=== PATIENT | male | born 1995 | race Caucasian/White ===

== ENCOUNTER 2018-09-24 08:54 | Emergency (ER) | payer BC ==
[2018-09-24] MEDS ORDERED: Sodium Chloride 0.9% 1,000 ML IV ONE (09:10)
[2018-09-24 09:55] LABS: ANION GAP 13.5 mmol/L (5-15); CHLORIDE,CL 96 mmol/L (98-115); SODIUM,NA 133 mmol/L (136-145)
[2018-09-24] MEDS ORDERED: Acetaminophen 500 MG Tab PO ONE (10:05)
--- NOTE | 2018-09-24 10:30 | EDM.PDOC ---
ED HPI GENERAL MEDICAL PROBLEM - General Chief Complaint: General Stated Complaint: SOB,LIGHT-HEADED,PASSED OUT Time Seen by Provider: 09/24/18 09:15 Source of Information: Reports: Patient - History of Present Illness INITIAL COMMENTS - FREE TEXT/NARRATIVE: 23-year-old male presented to the [facility] today with complaints of fever and not feeling well over the last 3 days. He was given a be seen and had a syncopal episode and then was therefore transferred over to the ER for further evaluation. IV was started and 1 L normal saline was initiated. Patient reports that he's been running fevers of 102 over the last 3 days. He has not felt well. He denies significant sore throat but his friend has states that he has had some cough. He denies any ear pain, no nausea or vomiting, no diarrhea. He reports no dysuria. He's not had any abdominal pain. He is been experiencing some associated headaches. He is otherwise very healthy and is not taking medications and has not had any significant past medical history. Onset: Gradual Onset Date: 09/21/18 Duration: Day(s):, Constant Location: Reports: Head, Neck Quality: Reports: Ache Severity: Moderate Improves with: Reports: Medication Worsens with: Reports: None Associated Symptoms: Reports: Cough, Fever/Chills, Headaches, Syncope. Denies: Confusion, Chest Pain, Nausea/Vomiting Treatments CHILD PSYCHOLOGIST: Reports: Acetaminophen headache Pain Score (Numeric/FACES): 8 - Related Data Allergies Allergy/AdvReac Type Severity Reaction Status Date / Time ibuprofen Allergy Hives Verified 09/24/18 09:23 Home Meds: Home Meds . [No Known Home Meds] 11/19/14 [History] Past Medical History - Past Health History Medical/Surgical History: Denies Medical/Surgical History Musculoskeletal History: Reports: Other (See Below) Other Musculoskeletal History: several fx. of the spine - Past Surgical History HEENT Surgical History: Reports: Oral Surgery Social & Family History - Family History Family Medical History: Noncontributory - Tobacco Use Smoking Status *Q: Never Smoker Second Hand Smoke Exposure: No - Caffeine Use Caffeine Use: Reports: None - Recreational Drug Use Recreational Drug Use: No ED ROS GENERAL - Review of Systems Review Of Systems: See Below Constitutional: Reports: Fever, Weakness HEENT: Reports: Throat Pain. Denies: Ear Discharge, Ear Pain, Rhinitis, Sinus Problem, Throat Swelling, Vision Change Respiratory: Reports: Shortness of Breath Cardiovascular: Denies: Chest Pain, Blood Pressure Problem Endocrine: Reports: No Symptoms GI/Abdominal: Reports: Difficulty Swallowing. Denies: Abdominal Pain, Anorexia , Black Stool, Bloody Stool, Diarrhea, Vomiting : Reports: No Symptoms Musculoskeletal: Reports: No Symptoms Skin: Reports: No Symptoms Neurological: Reports: Headache Psychiatric: Reports: No Symptoms Hematologic/Lymphatic: Reports: No Symptoms Immunologic: Reports: No Symptoms ED EXAM, GENERAL - Physical Exam Exam: See Below Exam Limited By: No Limitations General Appearance: Alert, WD/WN, No Apparent Distress Eye Exam: Bilateral Eye: EOMI, PERRL Ears: Normal External Exam, Normal Canal, Hearing Grossly Normal, Normal TMs Nose: Normal Inspection, Normal Mucosa, No Blood Throat/Mouth: Normal Inspection, Normal Lips, Normal Teeth, Normal Gums, Normal Voice, No Airway Compromise, Inflammation Head: Atraumatic, Normocephalic Neck: Normal Inspection, Supple, Non-Tender, Full Range of Motion. No: Lymphadenopathy (L), Lymphadenopathy (R) Respiratory/Chest: No Respiratory Distress, Lungs Clear, Normal Breath Sounds, No Accessory Muscle Use Cardiovascular: Regular Rate, Rhythm GI/Abdominal: Normal Bowel Sounds, Soft, Non-Tender, No Organomegaly, No Distention Back Exam: Normal Inspection, Full Range of Motion Extremities: Normal Inspection, Normal Range of Motion, Non-Tender, No Pedal Edema, Normal Capillary Refill Neurological: Alert, Oriented, Normal Cognition, Normal Gait, No Motor/Sensory Deficits Psychiatric: Normal Affect, Normal Mood Skin Exam: Warm, Dry, Intact, Normal Color, No Rash Lymphatic: No Adenopathy Course - Vital Signs Last Recorded V/S: Last Vital Signs Temp 100.1 F 09/24/18 10:58 Pulse 95 09/24/18 10:58 Resp 14 09/24/18 10:58 BP 113/45 L 09/24/18 10:58 Pulse Ox 96 09/24/18 10:58 - Orders/Labs/Meds Orders: Active Orders 24 hr Category Date Time Status CULTURE STREP A CONFIRMATION [] Stat Lab 09/24/18 09:40 Results CULTURE URINE [] Stat Lab 09/24/18 10:59 Ordered STREP SCRN A RAPID W CULT CONF [] Stat Lab 09/24/18 09:40 Results Labs: Laboratory Tests 09/24/18 09/24/18 09/24/18 Range/Units 09:18 09:18 10:30 WBC 13.68 H (5.00-10.00) 10^3/uL RBC 4.94 (4.50-6.00) 10^6/uL Hgb 14.6 (13.0-17.0) g/dL Hct 42.4 (40.0-52.0) % MCV 85.8 (82.0-92.0) fL MCH 29.6 (27.0-31.0) pg MCHC 34.4 (32.0-36.0) g/dL RDW 12.0 (11.5-14.5) % Plt Count 188 (150-400) 10^3/uL MPV 9.7 (7.4-10.4) fL Immature Gran % (Auto) 0.1 (0.0-5.0) % Neut % (Auto) 83.0 H (50.0-70.0) % Lymph % (Auto) 6.2 L (20.0-40.0) % [place] % (Auto) 10.6 H (2.0-8.0) % Eos % (Auto) 0.0 L (1.0-3.0) % Baso % (Auto) 0.1 (0.0-1.0) % Immature Gran # (Auto) 0.02 (0.00-0.50) 10^3/uL Neut # (Auto) 11.35 H (2.50-7.00) 10^3/uL Lymph # (Auto) 0.85 L (1.00-4.00) 10^3/uL [place] # (Auto) 1.45 H (0.10-0.80) 10^3/uL Eos # (Auto) 0.00 L (0.10-0.30) 10^3/uL Baso # (Auto) 0.01 (0.00-0.10) 10^3/uL Sodium 133 L (136-145) mmol/L Potassium 4.0 (3.3-5.3) mmol/L Chloride 96 L (98-115) mmol/L Carbon Dioxide 27.5 (21.0-32.0) mmol/L Anion Gap 13.5 (5-15) mmol/L BUN 17 (6-25) mg/dL Creatinine 1.10 (0.51-1.17) mg/dL Est Cr Clr Drug Dosing 99.65 mL/min Estimated GFR (MDRD) > 60 mL/min Glucose 115 H (75 - 99) mg/dL Calcium 8.7 (8.7-10.3) mg/dL Specimen Type Urinvoid Urine Color Yellow (YELLOW) Urine Appearance Clear (CLEAR) Urine pH 6.0 (5.0-9.0) Ur Specific [place] 1.020 (1.005-1.030) Urine Protein 30 H (NEGATIVE) mg/dL Urine Glucose (UA) Negative (NEGATIVE) mg/dL Urine Ketones 80 H (NEGATIVE) mg/dL Urine Occult Blood Trace-intact H (NEGATIVE) Urine Nitrite Negative (NEGATIVE) Urine Bilirubin Small H (NEGATIVE) Urine Urobilinogen 1.0 (0.2-1.0) E.U./dL Ur Leukocyte Esterase Negative (NEGATIVE) Urine RBC 0-5 (0-5) /HPF Urine WBC 0-5 (0-5) /HPF Ur Epithelial Cells Few /LPF Amorphous Sediment Few (0/HPF) /HPF Urine Bacteria Moderate H (NONE TO FEW) /HPF Urine Mucus Many H (NEGATIVE) /LPF Meds: Medications Discontinued Medications Generic Name Dose Route Start Last Admin Trade Name Liat PRN Reason Stop Dose Admin Acetaminophen 1,000 mg 09/24/18 10:05 09/24/18 10:10 Tylenol Extra Strength PO 09/24/18 10:06 1,000 mg ONETIME ONE Administration Sodium Chloride 1,000 mls @ 999 mls/hr 09/24/18 09:10 09/24/18 09:23 Normal Saline IV 09/24/18 10:10 999 mls/hr .BOLUS ONE Administration Departure - Departure Time of Disposition: 11:30 Disposition: Home, Self-Care 01 Condition: Good Clinical Impression: Neutrophilic leukocytosis Hematuria Qualifiers: Hematuria type: asymptomatic microscopic Qualified Code(s): R31.21 - Asymptomatic microscopic hematuria Urinary tract infection Qualifiers: Urinary tract infection type: urethritis Qualified Code(s): N34.2 - Other urethritis - Discharge Information Instructions: Urinary Tract Infection, Adult Referrals: PCP,None [Primary Care Provider] - Forms: ED Department Discharge Additional Instructions: 1. Drink plenty of water daily. 2. Tylenol for any fevers and aches 3. Bactrim DS twice a day for 3 days 4. Encourage rest no vigorous activity over the weekend 5. Follow up Dr. Kylah Fitch next week for recheck 6. Urine culture has been ordered - My Orders Last 24 Hours: My Active Orders 09/24/18 09:40 CULTURE STREP A CONFIRMATION [RM] Stat STREP SCRN A RAPID W CULT CONF [RM] Stat 09/24/18 10:59 CULTURE URINE [RM] Stat - Assessment/Plan Last 24 Hours: My Active Orders 09/24/18 09:40 CULTURE STREP A CONFIRMATION [RM] Stat STREP SCRN A RAPID W CULT CONF [RM] Stat 09/24/18 10:59 CULTURE URINE [RM] Stat Assessment:: Leukocytosis neutrophilic Urinary tract infection Fevers Plan: 1. Drink plenty of water daily. 2. Tylenol for any fevers and aches 3. Bactrim DS twice a day for 3 days 4. Encourage rest no vigorous activity over the weekend 5. Follow up Dr. Kylah Fitch next week for recheck 6. Urine culture has been ordered
[2018-09-24 10:59] VITALS: BP 113/45
== END 2018-09-24 11:16 | disposition home or self-care (01) ==
LOC: KA.ED 08:54
DX: N34.2 Other urethritis (principal); R31.21 Asymptomatic microscopic hematuria; D72.829 Elevated white blood cell count, unspecified; Z88.6 Allergy status to analgesic agent; Z98.890 Other specified postprocedural states
CPT/HCPCS: 36415; 80048; 81001; 85025; 87081; 87086; 87430; 87804; 96360; 99284-25; A9270-GY; J7030

== ENCOUNTER 2023-12-27 19:10 | Emergency (ER) | payer BC, OTHER ==
[2023-12-27] MEDS: Lidocaine 1% with EPINEPHrine 1:100,000 20 ML MDV INJECT ONE (19:40)
[2023-12-27] MEDS: Bacitracin/Neomycin/Polymyxin B Oint 0.9 GM U/D Packet TOP ONE (19:54)
[2023-12-28 05:18] VITALS: BP 105/66; PULSE 73
== END 2023-12-27 20:14 | disposition home or self-care (01) ==
LOC: KA.ED 19:10
DX: S41.111A Laceration without foreign body of right upper arm, initial encounter (principal); Z88.8 Allergy status to other drugs, medicaments and biological substances; W26.8XXA Contact with other sharp object(s), not elsewhere classified, initial encounter
CPT/HCPCS: 12002; 99282; J3490